=== PATIENT | male | born 1960 | race Caucasian/White ===

== ENCOUNTER 2017-06-18 13:52 | Inpatient (IN) | payer MEDICARE, MEDICAID ==
[~2017-06-18] VITALS: Ht 157.5 cm; Wt 64.9 kg
[~2017-06-18 13:52] MED LIST: ASPI-1159 PO; BRIM5DRO EACHEYE; CINA30 PO; DORZ10DR7 EACHEYE; DOXA2TAB2 PO; HYDR-4134 PO; HYDR-519 PO; LOSA50TA20 PO; METO25TA6 PO; RENAVITE PO; STAR120 PO
[2017-06-18] MEDS ORDERED: ASPIRIN 325MG EC TABLET PO ONE (15:00)
[2017-06-18] MEDS ORDERED: HYDRALAZINE HCL 100MG TABLET PO ONE ×2 (15:00→16:00)
[2017-06-18 15:12] LABS: INR 1.1; PROTHROMBIN TIME 10.9 sec (9.4-11.6)
[2017-06-18 15:14] LABS: BASOPHILS % 0.9 % (0.0-2.0); EOSINOPHILS % 0.4 % (0.0-5.0); HEMATOCRIT. 31.1 % (42.0-52.0); HEMOGLOBIN. 9.8 g/dL (14.0-18.0); LYMPHOCYTES % 15.2 % (20.0-50.0); MEAN CORPUSCULAR HEMOGLOBIN 21.3 pg (28.0-32.0); MEAN CORPUSCULAR VOLUME 67.8 fL (80.0-94.0); MEAN PLATELET VOLUME 8.9 fl (7.4-10.4); MONOCYTES % 9.6 % (2.0-8.0); NEUTROPHILS % 73.9 % (40.0-76.0); PLATELET 171 x1000/uL (130-400); RED BLOOD CELL COUNT 4.58 mill/uL (4.7-6.1); RED CELL DISTRIBUTION WIDTH 16.5 % (11.6-14.6)
[2017-06-18 15:22] LABS: CARBON DIOXIDE 33 mEq/L (21-32); CHLORIDE 98 mEq/L (98-107); TROPONIN I 0.08 ng/mL (0.00-0.04)
[2017-06-18 16:29] LABS: PLATELET ESTIMATE NORMAL
[2017-06-18 17:20] VITALS: BP 159/69
[2017-06-18] MEDS ORDERED: ASPIRIN 81MG EC TABLET PO NR (17:30)
[2017-06-18] MEDS ORDERED: CLOP75TA33 PO (17:48)
[2017-06-18 20:00] VITALS: BP 173/74
[2017-06-18] MEDS: POTASSIUM CHLORIDE 20MEQ TABLET SR PO SCH (21:58)
[2017-06-18] MEDS ORDERED: ISOSORB DINIT/HYDRALAZINE HCL 20/37.5MG TABLET PO SCH (22:00)
[2017-06-19] VITALS: BP 108/58
[2017-06-19 04:00] VITALS: BP 160/78
[2017-06-19 08:00] VITALS: BP 158/84
[2017-06-19] MEDS: POTASSIUM CHLORIDE 20MEQ TABLET SR PO SCH (08:45)
[2017-06-19] MEDS ORDERED: AMLODIPINE 5MG TABLET PO SCH (09:00)
[2017-06-19] MEDS ORDERED: CLOPIDOGREL 75MG TABLET PO SCH (09:00)
[2017-06-19] MEDS ORDERED: LOSARTAN POTASSIUM 50 MG TABLET PO SCH (09:00)
[2017-06-19] MEDS ORDERED: METOPROLOL TARTRATE 25MG TABLET PO SCH ×2 (09:00→21:00)
[2017-06-19] MEDS ORDERED: ASPIRIN 81MG EC TABLET PO SCH (09:00)
[2017-06-19] MEDS ORDERED: HYDRALAZINE HCL 100MG TABLET PO SCH (09:00)
[2017-06-19] MEDS ORDERED: HYDRALAZINE HCL 25MG TABLET PO SCH (09:00)
[2017-06-19] MEDS ORDERED: CINACALCET HCL 30MG TABLET PO SCH (09:00)
[2017-06-19 09:32] LABS: BASOPHILS % 0.6 % (0.0-2.0); EOSINOPHILS % 0.8 % (0.0-5.0); HEMATOCRIT. 33.4 % (42.0-52.0); HEMOGLOBIN. 10.4 g/dL (14.0-18.0); LYMPHOCYTES % 25.4 % (20.0-50.0); MEAN CORPUSCULAR HEMOGLOBIN 21.4 pg (28.0-32.0); MEAN CORPUSCULAR VOLUME 68.7 fL (80.0-94.0); MEAN PLATELET VOLUME 8.9 fl (7.4-10.4); MONOCYTES % 10.6 % (2.0-8.0); NEUTROPHILS % 62.6 % (40.0-76.0); PLATELET 171 x1000/uL (130-400); RED BLOOD CELL COUNT 4.86 mill/uL (4.7-6.1); RED CELL DISTRIBUTION WIDTH 16.4 % (11.6-14.6)
[2017-06-19 10:21] LABS: TROPONIN I 0.07 ng/mL (0.00-0.04)
[2017-06-19] MEDS ORDERED: DEXTROSE 50% WATER 50ML SYRINGE IV PRN (10:45)
[2017-06-19] MEDS ORDERED: POLYVINYL ALCOHOL OPHTH DROPS 15ML BOTHEYE PRN (10:45)
[2017-06-19] MEDS ORDERED: CLONIDINE 0.1MG TABLET PO PRN (10:45)
[2017-06-19 12:00] VITALS: BP 176/88
[2017-06-19] MEDS ORDERED: BLOOD SUGAR DIAGNOSTIC STRIP TEST SCH (12:40)
[2017-06-19] MEDS ORDERED: INSULIN LISPRO 100 UNITS/ML SUBCUT SCH (13:10)
[2017-06-19] MEDS ORDERED: BRIMONIDINE 0.2% OPHTH DROPS 5ML BOTHEYE SCH (14:00)
[2017-06-19] MEDS ORDERED: DORZOLAMIDE 2% OPHTH 10 ML BOTTLE BOTHEYE SCH (14:00)
[2017-06-19 16:00] VITALS: BP 148/78
[2017-06-19 17:56] VITALS: BP 148/78
== END 2017-06-19 18:29 | disposition home or self-care (01) | DRG 391 ==
LOC: ER 14:58 → ENRESERV 15:39 → 7WST 15:39 → EDBEDREQ 15:45 → EDBEDREQTM 15:45
PROVIDERS: ADMIT Internal Medicine Nephrology; ATTEND Internal Medicine Nephrology
DX: K21.9 Gastro-esophageal reflux disease without esophagitis (principal); N18.6 End stage renal disease; E11.21 Type 2 diabetes mellitus with diabetic nephropathy; I13.11 Hypertensive heart and chronic kidney disease without heart failure, with stage 5 chronic kidney disease, or end stage renal disease; I27.2 Other secondary pulmonary hypertension; I25.10 Atherosclerotic heart disease of native coronary artery without angina pectoris; E11.319 Type 2 diabetes mellitus with unspecified diabetic retinopathy without macular edema; D63.8 Anemia in other chronic diseases classified elsewhere; E11.22 Type 2 diabetes mellitus with diabetic chronic kidney disease; E87.6 Hypokalemia; H54.41 Blindness, right eye, normal vision left eye; I35.0 Nonrheumatic aortic (valve) stenosis; Z95.5 Presence of coronary angioplasty implant and graft; Z99.2 Dependence on renal dialysis; Z88.5 Allergy status to narcotic agent; Z88.8 Allergy status to other drugs, medicaments and biological substances; Z79.82 Long term (current) use of aspirin
CPT/HCPCS: 36415; 71010; 80048; 80053; 82962; 83880; 84484; 85025; 85610; 87040; 93005; 93306; 99285

== ENCOUNTER 2018-10-25 14:29 | Emergency (ER) | payer MEDICARE, MEDICAID ==
[~2018-10-25] VITALS: Ht 177.8 cm; Wt 79.5 kg
[~2018-10-25 14:29] MED LIST changes: +CLOP75TA33 PO; -DORZ10DR7 EACHEYE; -DOXA2TAB2 PO; -HYDR-519 PO
[2018-10-25] MEDS ORDERED: SODIUM CHLORIDE 0.9% 250 ML IV ONE (15:30)
[2018-10-25 15:44] LABS: CHLORIDE 99 mEq/L (98-107)
[2018-10-25 15:51] LABS: HEMATOCRIT. 35.6 % (42.0-52.0); HEMOGLOBIN. 11.2 g/dL (14.0-18.0); MEAN CORPUSCULAR HEMOGLOBIN 21.9 pg (28.0-32.0); MEAN CORPUSCULAR VOLUME 69.4 fL (80.0-94.0); MEAN PLATELET VOLUME 9.4 fl (7.4-10.4); PLATELET 168 x1000/uL (130-400); RED BLOOD CELL COUNT 5.13 mill/uL (4.7-6.1); RED CELL DISTRIBUTION WIDTH 17.3 % (11.6-14.6)
[2018-10-25] MEDS ORDERED: ALBUTEROL (0.083%) 2.5MG/3ML NEB HHN ONE (16:45)
[2018-10-25 17:56] LABS: NUCLEATED RED BLOOD CELLS 2 /100 WBC; PLATELET ESTIMATE NORMAL
[2018-10-25 18:57] VITALS: BP 133/76
== END 2018-10-25 19:28 | disposition home or self-care (01) ==
LOC: ER 14:57
DX: R55 Syncope and collapse (principal); I12.0 Hypertensive chronic kidney disease with stage 5 chronic kidney disease or end stage renal disease; E11.22 Type 2 diabetes mellitus with diabetic chronic kidney disease; N18.6 End stage renal disease; Z99.2 Dependence on renal dialysis
CPT/HCPCS: 36415; 71045; 80053; 84484; 85025; 93005; 94640; 96360; 96361; 99284; J7050; J7611; 94644